=== PATIENT | female | born 1935 | race Caucasian/White ===

== ENCOUNTER 2019-03-11 08:41 | Emergency (ER) | payer MEDICARE ==
[2019-03-11] MEDS ORDERED: Ondansetron PF 4 MG/2 ML Vial ONE (09:15)
[2019-03-11] MEDS ORDERED: Morphine 4 MG/ML VIAL ONE (09:15)
[2019-03-11 09:16] LABS: Blood, Urine Large (Negative); Clarity Cloudy (Clear)
[2019-03-11 09:22] LABS: #Basophils 0.1 thou/uL (0.0-0.2); #Eosinphils 0.2 thou/uL (0.0-0.7); #Lymphocytes 2.3 thou/uL (1.20-3.40); #Monocytes 0.5 thou/uL (0.11-0.59); #Neutrophils 5.2 thou/uL (1.40-6.50); %Eosinophils 2.1 % (0.0-10.0); %Lymphocytes 27.3 % (21.0-51.0); %Monocytes 6.6 % (0.0-10.0); Bilirubin Unable to Interpret (Negative); Glucose, Urine (Dipstick) Unable to Interpret mg/dL (Negative); Hemoglobin 14.7 g/dL (12.0-16.0); Mean Corpuscular HGB CONC 32.9 g/dL (32.0-36.0); Mean Corpuscular Hemoglobin 31.1 pg (27.0-31.0); Mean Corpuscular Volume 94.4 fL (78.0-98.0); Mean Platelet Volume 9.1 fL (7.4-10.4); Nitrite Unable to Interpret (Negative); Platelet Count 202 thou/uL (130-400); Protein, Urine (Dipstick) Unable to Interpret mg/dL (Neg-Trace); RBC Distribution Width 11.7 % (11.5-14.5); Red Blood Cell (RBC) Count 4.73 mill/uL (4.20-5.40); Urobilinogen UNABLE TO INTERPRET mg/dL (Less than 2); White Blood Cell (WBC) Count 8.2 thou/uL (4.8-10.8)
[2019-03-11 09:24] LABS: Bacteria/HPF 1+ HPF (None Seen); RBC/HPF Greater than 50 HPF (0-3); Squamous Epithelial None Seen HPF (0-3); WBC/HPF 0-3 HPF (0-3)
[2019-03-11 09:27] LABS: PTT 30.3 SEC (22.9-36.1); Prothrombin Time 12.8 SEC (12.0-14.7)
[2019-03-11 09:30] LABS: Leukocyte Unable to Interpret (Negative)
[2019-03-11 09:31] LABS: Lactic Acid 1.9 mmol/L (0.5-2.2)
[2019-03-11 09:35] LABS: ALT (SGPT) 23 U/L (8-55); AST (SGOT) 24 U/L (5-34); Albumin 4.2 g/dL (3.4-4.8); Alkaline Phosphatase 51 U/L (40-110); Anion Gap 14 mmol/L (10-20); BUN (Urea Nitrogen) 15 mg/dL (9.8-20.1); Bilirubin, Total 0.5 mg/dL (0.2-1.2); Calc. Creatinine Clearance 0 mL/min (70-130); Calcium 10.5 mg/dL (7.8-10.44); Carbon Dioxide 21 mmol/L (23-31); Chloride 105 mmol/L (98-107); Estimated GFR-MDRD 74; Globulin 2.7 g/dL (2.4-3.5); Glucose 103 mg/dL (83-110); Potassium 3.6 mmol/L (3.5-5.1); Protein, Total 6.9 g/dL (6.0-8.3); Sodium 136 mmol/L (136-145)
--- NOTE | 2019-03-11 09:51 | CT ---
CT OF THE ABDOMEN AND PELVIS WITHOUT CONTRAST: HISTORY: Hematuria and urinary urgency. Perineal abdominal pain. TECHNIQUE: Multiple contiguous axial images were obtained in a CT of the abdomen and pelvis without contrast. S agittal and coronal reformats were performed. FINDINGS: The patient is status post cholecystectomy. The liver, kidneys, adrenal glands, spleen, and pancreas are unremarkable, although evaluation is limited without IV contrast. There is no abnormality of the urinary bladder. Calcifications in the uterus likely represent calcif ied fibroids. The large and small bowel are unremarkable. No abdominal or pelvic lymphadenopathy ar e seen. Atherosclerotic calcifications are seen in the aorta. Degenerative changes are seen in the spine. The visualized inferior thorax and abdominal wall soft t issues are unremarkable. IMPRESSION: No evidence of acute intraabdominal/pelvic abnormality. POS: [facility]
[2019-03-11] MEDS ORDERED: Phenazopyridine HCl 97.5 MG TABLET PO SCH (10:00)
[2019-03-11] MEDS ORDERED: Sodium Chloride 0.9% 1,000 ML ONE (10:42)
== END 2019-03-11 11:32 | disposition short-term general hospital (02) ==
LOC: NAV ERS 08:41
DX: R10.30 Lower abdominal pain, unspecified (principal); R31.0 Gross hematuria; R10.812 Left upper quadrant abdominal tenderness; R10.811 Right upper quadrant abdominal tenderness; Z86.73 Personal history of transient ischemic attack (TIA), and cerebral infarction without residual deficits; I10 Essential (primary) hypertension; Z79.01 Long term (current) use of anticoagulants; Z79.82 Long term (current) use of aspirin; Z79.899 Other long term (current) drug therapy
CPT/HCPCS: 74176; 80053; 81003; 81015; 83605; 85025; 85610; 85730; 87077; 87086; 87186; 96374; 96375; J2270; J2405; J7050

== ENCOUNTER 2022-03-03 17:24 | Emergency (ER) | payer MEDICARE ==
[2022-03-03] MEDS ORDERED: Lidocaine 1% (PF) 30 ML VIAL ONE (17:55)
[2022-03-03] MEDS ORDERED: Clindamycin 150 MG CAP ONE (17:55)
== END 2022-03-03 18:33 | disposition home or self-care (01) ==
LOC: NAV ERS 17:24
DX: L72.3 Sebaceous cyst (principal); I10 Essential (primary) hypertension; Z79.899 Other long term (current) drug therapy
CPT/HCPCS: 10060; 87070; 87205; J2001

== ENCOUNTER 2022-12-02 20:46 | Emergency (ER) | payer MEDICARE ==
[2022-12-02] MEDS ORDERED: Dexamethasone 4 MG TAB ONE (22:34)
== END 2022-12-02 22:48 | disposition home or self-care (01) ==
LOC: NAV ERS 20:46
DX: T63.441A Toxic effect of venom of bees, accidental (unintentional), initial encounter (principal); T78.40XA Allergy, unspecified, initial encounter; I10 Essential (primary) hypertension; Z86.73 Personal history of transient ischemic attack (TIA), and cerebral infarction without residual deficits; Z79.82 Long term (current) use of aspirin; Z79.02 Long term (current) use of antithrombotics/antiplatelets
CPT/HCPCS: 99283; J8540

== ENCOUNTER 2023-01-18 05:21 | Emergency (ER) | payer MEDICARE ==
[2023-01-18] MEDS ORDERED: Sodium Chloride 0.9% 100 ML ONE ×2 (05:44→05:59)
[2023-01-18] MEDS ORDERED: Sodium Chloride 0.9% 0 ML ONE (05:44)
[2023-01-18] MEDS ORDERED: dilTIAZem 25 MG/5 ML VIAL ONE (05:44)
[2023-01-18] MEDS ORDERED: dilTIAZem 125 MG/25 ML SDV ONE ×2 (05:44→05:59)
[2023-01-18 05:49] LABS: #Basophils 0.1 thou/uL (0.0-0.2); #Eosinphils 0.2 thou/uL (0.0-0.7); #Neutrophils 5.7 thou/uL (1.40-6.50); %Basophils 0.7 % (0.0-1.0); %Eosinophils 1.6 % (0.0-10.0); %Lymphocytes 36.4 % (21.0-51.0); %Neutrophils 52.4 % (42.0-75.0); Mean Corpuscular Hemoglobin 31.8 pg (27.0-31.0); Mean Corpuscular Volume 93.6 fl (78.0-98.0); Mean Platelet Volume 10.2 fL (7.4-10.4); Platelet Count 225 10x3/uL (130-400); RBC Distribution Width 11.8 % (11.5-14.5); Red Blood Cell (RBC) Count 5.05 mill/uL (4.20-5.40)
[2023-01-18 06:07] LABS: ALT (SGPT) 17 U/L (8-55); AST (SGOT) 20 U/L (5-34); Albumin 4.3 g/dL (3.4-4.8); Alkaline Phosphatase 52 U/L (40-110); Anion Gap 17 mmol/L (10-20); BUN (Urea Nitrogen) 18 mg/dL (9.8-20.1); Bilirubin, Total 0.9 mg/dL (0.2-1.2); Calc. Creatinine Clearance 0 mL/min (70-130); Calcium 10.6 mg/dL (7.8-10.44); Carbon Dioxide 20 mmol/L (23-31); Chloride 101 mmol/L (98-107); Estimated GFR 65; Globulin 2.7 g/dL (2.4-3.5); Glucose 129 mg/dL (83-110); Potassium 3.3 mmol/L (3.5-5.1); Sodium 135 mmol/L (136-145)
[2023-01-18] MEDS ORDERED: Sodium Chloride 0.9% 250 ML 250 ML ONE ×2 (07:35→07:49)
[2023-01-18] MEDS ORDERED: Potassium Chloride 20 MEQ TAB ONE ×2 (07:39→07:42)
[2023-01-18] MEDS ORDERED: Aspirin 325 MG TAB ONE (09:10)
== END 2023-01-18 08:34 | disposition short-term general hospital (02) ==
LOC: NAV ERS 05:21
DX: I48.91 Unspecified atrial fibrillation (principal); I10 Essential (primary) hypertension; Z86.73 Personal history of transient ischemic attack (TIA), and cerebral infarction without residual deficits; Z79.899 Other long term (current) drug therapy
CPT/HCPCS: 36415; 71045; 80053; 84484; 85025; 85610; 85730; 93005; 94760; 96365; 96366; 96372; 96376; J1650; J3490; J7050

== ENCOUNTER 2024-06-22 14:03 | Emergency (ER) | payer MEDICARE ==
[2024-06-22] MEDS ORDERED: dilTIAZem 25 MG/5 ML VIAL ONE (14:44)
[2024-06-22 15:10] LABS: Anion Gap 12 mmol/L (10-20); BUN (Urea Nitrogen) 17 mg/dL (9.8-20.1); Calc. Creatinine Clearance 0 mL/min (70-130); Carbon Dioxide 22 mmol/L (23-31); Chloride 106 mmol/L (98-107); Potassium 3.5 mmol/L (3.5-5.1); Sodium 136 mmol/L (136-145)
[2024-06-22 15:11] LABS: ALT (SGPT) 59 U/L (8-55); AST (SGOT) 27 U/L (5-34); Albumin 3.2 g/dL (3.4-4.8); Alkaline Phosphatase 64 U/L (40-110); Bilirubin, Total 0.3 mg/dL (0.2-1.2); Estimated GFR 75; Glucose 105 mg/dL (83-110); Protein, Total 6.2 g/dL (5.8-8.1)
[2024-06-22 15:16] LABS: Troponin I 0.013 ng/mL (< 0.028)
[2024-06-22 15:25] LABS: #Basophils 0.1 thou/uL (0.0-0.2); #Eosinophils 0.1 thou/uL (0.0-0.7); #Lymphocytes 2.3 thou/uL (1.20-3.40); #Monocytes 0.9 thou/uL (0.11-0.59); #Neutrophils 4.5 thou/uL (1.40-6.50); %Basophils 0.8 % (0.0-1.0); %Eosinophils 0.7 % (0.0-10.0); %Lymphocytes 29.4 % (21.0-51.0); Hematocrit 40.2 % (36.0-47.0); Hemoglobin 13.3 g/dL (12.0-16.0); Mean Corpuscular Hemoglobin 30.6 pg (27.0-31.0); Mean Corpuscular Volume 92.8 fl (78.0-98.0); Mean Platelet Volume 9.5 fL (7.4-10.4); Platelet Count 189 10x3/uL (130-400); RBC Distribution Width 11.5 % (11.5-14.5); Red Blood Cell (RBC) Count 4.33 mill/uL (4.20-5.40); White Blood Cell (WBC) Count 7.8 10x3/uL (4.8-10.8)
[2024-06-22] MEDS ORDERED: dilTIAZem 125 MG/25 ML SDV ONE (15:39)
[2024-06-22] MEDS ORDERED: Sodium Chloride 0.9% 100 ML ONE (15:40)
== END 2024-06-22 17:35 | disposition short-term general hospital (02) ==
LOC: NAV ERS 14:03
DX: I48.91 Unspecified atrial fibrillation (principal); R42 Dizziness and giddiness; I10 Essential (primary) hypertension; G45.9 Transient cerebral ischemic attack, unspecified; Z79.01 Long term (current) use of anticoagulants
CPT/HCPCS: 71045; 80053; 83880; 84443; 84484; 85025; 93005; 94760; 96365; 96374